=== PATIENT | female | born 1985 | race Caucasian/White ===

== ENCOUNTER → 2017-05-23 | Outpatient (CLI) | payer OTHER | LOC: FIMAGING 13:45 | PROVIDERS: ATTEND Advanced Practice Midwife | DX: O35.8XX0 Maternal care for other (suspected) fetal abnormality and damage, not applicable or unspecified (principal); Z3A.20 20 weeks gestation of pregnancy ==

== ENCOUNTER → 2017-08-03 | Outpatient (CLI) | payer OTHER | LOC: FIMAGING 11:23 | PROVIDERS: ATTEND Advanced Practice Midwife | DX: Z34.83 Encounter for supervision of other normal pregnancy, third trimester (principal); Z3A.30 30 weeks gestation of pregnancy ==

== ENCOUNTER 2017-10-05 06:14 | Inpatient (IN) | payer OTHER ==
[2017-10-05] MEDS ORDERED: OXYTOCIN/RINGERS LACTATE 1,000 ML IV PRN (06:23)
[2017-10-05] MEDS ORDERED: EPSOM SALT 454 GM TP PRN (06:23)
[2017-10-05] MEDS ORDERED: IBUPROFEN 600 MG TAB PO PRN (06:23)
[2017-10-05] MEDS ORDERED: LR 1,000 ML IV PRN (06:23)
[2017-10-05] MEDS ORDERED: TERBUTALINE SULFATE 1 MG/ML VIAL IV PRN (06:23)
[2017-10-05] MEDS ORDERED: LIDOCAINE 1% 300 MG/30 ML SDV SC PRN (06:23)
[2017-10-05] MEDS ORDERED: AMMONIA AROMATIC 1 EACH AMP IH PRN (06:23)
[2017-10-05] MEDS ORDERED: OLIVE OIL 118 ML BTL MISC PRN (06:23)
[2017-10-05] MEDS ORDERED: MISOPROSTOL 200 MCG TAB PO PRN (06:23)
[2017-10-05 07:04] LABS: PLATELET COUNT 155 10^3/uL (150-400)
--- NOTE | 2017-10-05 07:15 | PDGENHP ---
History and Physical History and Physical: CARE: [facility] HPI: Patient is a 32 yo with IUP@ 39-6wks that presents to L&D for IOL. She denies any contractions, LOF, VB. Reports +FM. EDC: 10/06/17 which is based on LMP: 12/30/16 which is known and consistent with Ultrasound at 7 weeks. Her is complicated by: anemia, 2VC Review of Systems: Constitutional: Denies any fever, chills, or fatigue HEENT: denies any visual changes, difficulty swallowing, hearing loss Cardiovascular: Denies any chest pain, palpitations, leg swelling Respiratory: denies any cough, wheezing, or shortness of breathe GI: Denies any nausea, vomiting, diarrhea, constipation : denies any dysuria, urgency, frequency, vaginal bleeding Musculoskeletal: denies any muscle or bone pain Skin: denies any rashes Neuro: denies any headache, seizures, lightheadedness, dizziness, or loss of consciousness Psychiatric: denies any depression, anxiety, or SI/HI thoughts HISTORY: Previous OB history: SVDx2, MAB Past medical history: noncontributory Past surgical history: oral surgery, tonsillectomy, appendectomy Medications: PNV, DHA Allergies (list reaction): NKDA LABS: Rh: A+ ABS: Neg Rubella: Immune HbsAg: NR HIV: NR VDRL: NR 1hr: 108 GC: Neg Chlamydia: Neg Pap: Normal GBS: Negative BMI: (prepreg) 25 PHYSICAL EXAM: Constitutional: WN, A&Ox3 HEENT: normocephalic atraumatic, supple Heart: RRR, no murmur Chest: CTA-B Abdomen: Soft, nontender, gravid SVE: 350/-2 Extremities: no edema, negative homans sign Neuro: grossly normal Psych: normal affect assessment: Reassuring FHTs, baseline 125 +accels, no decels, moderate variability Contractions: toco irregular Assessment: 1) 32yo with IUP@39-6wks () 2) IOL 3) GBS Negative 4) Cat 1 FHR tracing Plan: 1) Admit to L&D 2) pitocin/AROM 3) pain management PRN 4) anticipate
[2017-10-05] MEDS ORDERED: LR 500 ML IV PRN (07:20)
[2017-10-05] MEDS ORDERED: OXYTOCIN/RINGERS LACTATE 500 ML IV SCH (07:30)
[2017-10-05] MEDS ORDERED: LIDOCAINE 1% 300 MG/30 ML SDV ONE (07:32)
[2017-10-05] MEDS ORDERED: MISOPROSTOL 200 MCG TAB ONE (07:32)
[2017-10-05] MEDS ORDERED: OLIVE OIL 118 ML BTL ONE (07:32)
[2017-10-05] MEDS ORDERED: AMMONIA AROMATIC 1 EACH AMP IH ONE (07:32)
--- NOTE | 2017-10-05 08:07 | OBPROG ---
Labor Progress Note Assessment/Plan: Assessment: [id number] with IUP@ 39-6wks (L/7) IOL GBS Negative Cat 1 FHR tracing 2VC Plan: start pitocin AROM PRN pain management PRN anticipate Subjective/Intrapartum Course: 10/05/17 08:06 Pt doing well, denies any contractions, LOF, VB. Reports +FM. Denies any pain. Objective: 10/05/17 06:30 Patient ABO/Rh A POSITIVE 10/05/17 06:30 - SVE Dilation (cm): 3 Effacement (%): 50 Station: -2 - Contraction Pattern Assessment Current Contraction Pattern: Irregular - FHR Assessment [place] FHR (bpm): 125 FHR Pattern Variability: Moderate FHR Category: 1 - Physical Exam General Appearance: WD/WN, alert, no apparent distress Abdomen: non-tender, soft Extremities: non-tender Skin: normal color, warm/dry Neuro/Psych: alert, normal mood/affect, oriented x 3 Oxytocin Orders Assessment - Pre-Induction/Augmentation Assessment Presentation: Vertex Gestational Age: 39 week(s) and 6 day(s) Estimated Weight: 7849-4265 Membrane Status: Intact Current Contraction Pattern: Irregular - Heart Rate Pattern [place] FHR Baseline (bpm): 125 FHR Category: 1 FHR Pattern Variability: Moderate FHR Accelerations: Present - Rivera's Score Dilation: 3-4cm Effacement: 40-50 Station: -2 Cervix: Medium Cervix Position: Posterior Rivera Score Total: 5 - Induction/Augmentation Consent Risks/Benefits of Procedure Reviewed/Pt Agrees to Proceed: Yes ICD10 Worksheet Patient Problems: Problems Problem Status Onset Encounter for induction of labor Acute Two vessel umbilical cord Acute (spontaneous vaginal delivery) Acute - ICD10 Problem Qualifiers (1) Two vessel umbilical cord (2) Encounter for induction of labor
--- NOTE | 2017-10-05 12:29 | OBPROG ---
Labor Progress Note Assessment/Plan: Assessment: [id number] with IUP@ 39-6wks (L/7) IOL GBS Negative Cat 1 FHR tracing 2VC Plan: start pitocin AROM PRN pain management PRN anticipate Subjective/Intrapartum Course: 10/05/17 08:06 Pt doing well, denies any contractions, LOF, VB. Reports +FM. Denies any pain. Objective: 10/05/17 06:30 Patient ABO/Rh A POSITIVE 10/05/17 06:30 - Contraction Pattern Assessment Current Contraction Pattern: Irregular - Physical Exam Estimated Weight: 9828-1553 Oxytocin Orders Assessment - Pre-Induction/Augmentation Assessment Presentation: Vertex Gestational Age: 39 week(s) and 6 day(s) Estimated Weight: 6735-8930 ICD10 Worksheet Patient Problems: Problems Problem Status Onset Encounter for induction of labor Acute Two vessel umbilical cord Acute (spontaneous vaginal delivery) Acute - ICD10 Problem Qualifiers (1) Two vessel umbilical cord (2) Encounter for induction of labor
[2017-10-05] MEDS ORDERED: PHENYLEPHRINE HCL 100 MCG/ML SYR ONE (13:17)
[2017-10-05] MEDS ORDERED: fentaNYL 2MCG/ML/BUP 0.1% RTU 100 ML BAG EP ONE (13:17)
[2017-10-05] MEDS ORDERED: BUPIVACAINE 0.25% 30 ML SDV ONE (13:17)
[2017-10-05] MEDS ORDERED: fentaNYL 100 MCG/2 ML INJ ONE (13:18)
[2017-10-05] MEDS ORDERED: ONDANSETRON 4 MG/2 ML VIAL IVP PRN (14:18)
[2017-10-05] MEDS ORDERED: PHENYLEPHRINE HCL 100 MCG/ML SYR IVP PRN (14:18)
--- NOTE | 2017-10-05 14:21 | POSTANESTH ---
Post Anesthetic Evaluation Cardiovascular Status: Normal, Stable, Similar to Pre-Op Cond Respiratory Status: Normal, Stable, Similar to Pre-op Cond. Level of Consciousness/Mental Status: Can Participate in Eval, Alert and Oriented Pain Control: Adequate, Prn Tx Ordered Nausea/Vomiting Control: Adequate, Prn Tx Ordered Complications Possibly Related to Anesthesia: None Noted
--- NOTE | 2017-10-05 14:24 | PREANESOB ---
Obstetric Pre-Anesthesia Info - General Info Proposed Procedure: Labor and delivery with pitocin. : 4 Para: 2 JULIOCESAR: 10/06/17 Gestational Age: 39 week(s) and 6 day(s) - Info Status: Full Term Monitors: External FHR Baseline (bpm): 130 FHR Pattern: Reassuring - Labor Status Cervical Dilation per last OB SVE: 3 Station per last OB SVE: -2 Pitocin: In Use Indications for Labor Analgesia: Induction of Labor, Pain Control Labor Epidural: Proposed Anesthesia ROS: Prior labor epidural and general anesthesia. Allergies/Adverse Reactions: Allergy/AdvReac Type Severity Reaction Status Date / Time No Known Allergies Allergy Unverified 05/05/14 09:53 Home Medications: Medication Instructions Recorded [place]-3/Dha/Epa/Fish Oil [Fish Oil 1 cap PO DAILY 08/19/15 Dr 500 mg Softgel] Vit27&Calcium/Iron/FA 2 tab PO BID 08/19/15 [] Visit Medications: Generic Name Dose Route Start Last Admin Trade Name Freq PRN Reason Stop Dose Admin Ammonia (Aromatic Spirit) 1 each 10/05/17 06:23 Ammonia Aromatic IH 10/15/17 06:22 ONCE PRN Fainting Diphenhydramine HCl 25 - 50 mg 10/05/17 14:18 Benadryl Injection IVP 04/03/18 14:17 Q6HRS PRN Itching Lactated Ringer's 1,000 mls @ 0 mls/hr 10/05/17 06:23 10/05/17 08:05 Lr IV 10/06/17 06:22 1,000 mls PRN PRN Administration SEE PROTOCOL CONDITIONS Protocol Per Protocol Oxytocin/Lactated Ringer's 1,000 mls @ 0 mls/hr 10/05/17 06:23 Pitocin 20 Units/Lr (Premix) IV PRN PRN Post bleeding Per Protocol Lactated Ringer's 500 mls @ 500 mls/hr 10/05/17 07:20 Lr IV 10/06/17 07:20 PRN PRN Maternal Hypotension Oxytocin/Lactated Ringer's 500 mls @ 0 mls/hr 10/05/17 07:30 10/05/17 08:06 Pitocin 30 Units/Lr (Premix) IV 04/03/18 07:29 500 mls CONT MAMI Administration Protocol Per Protocol Fentanyl/Bupivacaine HCl 100 mls @ 0 mls/hr 10/05/17 14:30 Fentanyl/Bupivacaine/Ns 2 Mcg/Ml 0.1% (Premix EP 10/15/17 14:29 CONT [facility] Protocol As Directed Lactated Ringer's 500 mls @ 0 mls/hr 10/05/17 14:30 Lr IV 04/03/18 14:29 CONT MAMI As Directed Ibuprofen 600 mg 10/05/17 06:23 Motrin PO ONCE PRN post , pain Lidocaine HCl 300 mg 10/05/17 06:23 Lidocaine Hcl 1% SC 04/03/18 06:22 ONCE PRN episiotomy Magnesium Sulfate 454 gm 10/05/17 06:23 Epsom Salt TP 04/03/18 06:22 Q1H PRN perineal discomfort Misoprostol 800 - 1,000 mcg 10/05/17 06:23 Cytotec PO 04/03/18 06:22 ONCE PRN Vaginal Atony/Bleeding [facility] Oil 118 ml 10/05/17 06:23 Sweet Oil MISC 04/03/18 06:22 ONCE PRN perineal massage Ondansetron HCl 4 mg 10/05/17 14:18 Zofran IVP 10/06/17 14:17 Q4HRS PRN Nausea/Vomiting, Can't Take PO Phenylephrine HCl 100 mcg 10/05/17 14:18 Neosynephrine IVP 04/03/18 14:17 .Q2M PRN Hypotension Terbutaline Sulfate 0.25 mg 10/05/17 06:23 Brethine IV 04/03/18 06:22 ONCE PRN Tachysystole Discontinued Medications Generic Name Dose Route Start Last Admin Trade Name Freq PRN Reason Stop Dose Admin Ammonia (Aromatic Spirit) Confirm 10/05/17 07:32 Ammonia Aromatic Administered 10/05/17 07:33 Dose 1 each IH .STK-MED ONE Bupivacaine HCl Confirm 10/05/17 13:17 Sensorcaine 0.25% Sdv Administered 10/05/17 13:18 Dose 30 ml .ROUTE .STK-MED ONE Fentanyl Confirm 10/05/17 13:18 Sublimaze Administered 10/05/17 13:19 Dose 100 mcg .ROUTE .STK-MED ONE Fentanyl/Bupivacaine HCl Confirm 10/05/17 13:17 Fentanyl/Bupivacaine/Ns 2 Mcg/Ml 0.1% (Premix Administered 10/05/17 13:18 Dose 100 ml EP .STK-MED ONE Lidocaine HCl Confirm 10/05/17 07:32 Lidocaine Hcl 1% Administered 10/05/17 07:33 Dose 300 mg .ROUTE .STK-MED ONE Misoprostol Confirm 10/05/17 07:32 Cytotec Administered 10/05/17 07:33 Dose 1,000 mcg .ROUTE .STK-MED ONE [facility] Oil Confirm 10/05/17 07:32 Sweet Oil Administered 10/05/17 07:33 Dose 118 ml .ROUTE .STK-MED ONE Phenylephrine HCl Confirm 10/05/17 13:17 Neosynephrine Administered 10/05/17 13:18 Dose 1,000 mcg .ROUTE .STK-MED ONE - Anesthesia History Response to Local Anesthetics: Normal Anesthesia & Operative History: No Prior Problems Family Anesthesia History: Negative - Social History Substance Use/Abuse: Denies - Vital Signs Blood Pressure: 124/64 Heart Rate: 81 Height/Weight (Nursing): Height 172.72 cm Weight 91.172 kg - Focused Exam Neck exam: FROM Mallampati Score: Class 1 Mouth exam: normal dental/mouth exam Pulmonary: no respiratory distress Cardiovascular: regular rate and rhythym Labs: 10/05/17 06:30 Patient ABO/Rh A POSITIVE 10/05/17 06:30 - Plan Anesthetic Plan: CSE Consent Signed and on Chart: Yes Patient/Guardian Understands and Agrees to Plan: Yes Urgent/Emergent Case: Dexter faria completed preop but documented later for safe timely pt care
[2017-10-05] MEDS ORDERED: LR 500 ML IV SCH (14:30)
[2017-10-05] MEDS ORDERED: fentaNYL 2MCG/ML/BUP 0.1% RTU 100 ML EP SCH (14:30)
--- NOTE | 2017-10-05 15:53 | OBDEL ---
Info Type: Vaginal Presentation at Delivery: Vertex L&D Analgesia/Anesthesia Type: Epidural GBS+: No Intrapartum Medications: Generic Name Dose Route Start Last Admin Trade Name Freq PRN Reason Stop Dose Admin Lactated Ringer's 1,000 mls @ 0 mls/hr 10/05/17 06:23 10/05/17 08:05 Lr IV 10/06/17 06:22 1,000 mls PRN PRN Administration SEE PROTOCOL CONDITIONS Protocol Per Protocol Oxytocin/Lactated Ringer's 500 mls @ 0 mls/hr 10/05/17 07:30 10/05/17 08:06 Pitocin 30 Units/Lr (Premix) IV 04/03/18 07:29 500 mls CONT MAMI Administration Protocol Per Protocol - Hospital Course Intrapartum: 10/05/17 08:06 Pt doing well, denies any contractions, LOF, VB. Reports +FM. Denies any pain. Indications for Delivery: Elective Vaginal Delivery - Delivery Provider Delivery Physician/CNM: Katherine De Proctoring Provider: Fracisco Quintanilla - Labor and Delivery Onset of Contractions Date: 10/05/17 Onset of Contractions Time: 12:19 Onset of Contractions Type: Induced Rupture of Membranes Date: 10/05/17 Rupture of Membranes Time: 12:19 Rupture of Membranes Type: Artificial Amniotic Fluid Color: Clear Dilation Complete Date: 10/05/17 Dilation Complete Time: 14:40 Placenta Delivery Date: 10/05/17 Placenta Delivery Time: 15:10 Total Hours of Labor: 2 Non-surgical Procedures: Amniotomy Vaginal Sponge Count Correct: Yes Vaginal Needle Count Correct: Yes Vaginal Sweep Performed: Yes EBL: 300 Delivery Events: None Delivery Comment: Delivered OA to [facility]. Dad helped catch. No complications - Medications Labor Augmentation/Induction Methods Used: Pitocin Labor Augmentation/Induction Indication: Elective [place] Data JULIOCESAR: 10/06/17 Gestational Age: 39 week(s) and 6 day(s) [place] Delivery Date: 10/05/17 Delivery Time: 15:00 Sex of : Female Score (1 Min): 8 Score (5 Min): 9 ICD10 Worksheet Patient Problems: Problems Problem Status Onset Encounter for induction of labor Acute Two vessel umbilical cord Acute (spontaneous vaginal delivery) Acute
[2017-10-05] MEDS ORDERED: DOCUSATE SODIUM 100 MG CAP PO PRN (16:00)
[2017-10-05] MEDS ORDERED: SIMETHICONE 80 MG TAB CHEW PO PRN (16:00)
[2017-10-05] MEDS ORDERED: HYDROCORTISONE 0.5% CREAM TP PRN (16:00)
[2017-10-05] MEDS: ACETAMINOPHEN 325 MG TAB PO SCH (18:40)
[2017-10-05] MEDS: IBUPROFEN 600 MG TAB PO SCH (19:21)
[2017-10-05 21:43] VITALS: BP 111/63
[2017-10-06] MEDS: IBUPROFEN 600 MG TAB PO SCH ×3 (00:19→12:19)
[2017-10-06] MEDS: ACETAMINOPHEN 325 MG TAB PO SCH ×3 (00:59→13:36)
--- NOTE | 2017-10-06 13:22 | OBGCSDC ---
General Delivery Information - General Info : 4 Para: 3 Abortions: 1 Type: Vaginal L&D Analgesia/Anesthesia Type: Epidural Admission Date: 10/05/17 Labs: Patient ABO/Rh A POSITIVE 10/05/17 06:30 Hct 35.8 % (38.0-47.0) L 10/05/17 06:30 - Hospital Course Antepartum: 10/06/17 13:21 uneventful Intrapartum: 10/05/17 08:06 Pt doing well, denies any contractions, LOF, VB. Reports +FM. Denies any pain. : 10/06/17 13:21 Doing well. Denies pain. Taking ibuprofen q 6 hours. Bleeding minimal. Vaginal - Delivery Provider Delivery Physician/CNM: Katherine De - Diagnosis Labor: Induced Rupture of Membranes Type: Artificial Amniotic Fluid Color: Clear Delivery Events: None - Procedures Non-surgical Procedures: Amniotomy - Delivery Non-surgical Procedures: Amniotomy EBL: 300 Data JULIOCESAR: 10/06/17 Gestational Age: 40 week(s) and 0 day(s) [place] Delivery Date: 10/05/17 Delivery Time: 15:00 Sex of : Female [place] Weight (gm): 4098 g Score (1 Min): 8 Score (5 Min): 9 Discharge Information - Discharge Information Condition: Good Instruction/Follow Up: Two Weeks, Four Weeks, Six Weeks
--- NOTE | 2017-10-06 13:26 | OBPP ---
Progress Note Assessment/Plan: Assessment: 32 PPD #1, doing well Plan: Discharge home today. Reviewed pp instructions. Follow up in the office at 2/4/6 weeks. 10/06/17 13:24 Subjective/ Course: 10/06/17 13:21 Doing well. Denies pain. Taking ibuprofen q 6 hours. Bleeding minimal. Desires discharge home today 10/06/17 13:23 Objective: 10/05/17 06:30 Patient ABO/Rh A POSITIVE 10/05/17 06:30 Temp Pulse Resp BP Pulse Ox 37.1 C 77 16 111/63 95 10/05/17 21:42 10/05/17 21:42 10/05/17 21:42 10/05/17 21:42 10/05/17 21:42 Breasts soft, nipples intact U/2 bleeding minimal neg jody's sign Uterine Position/Fundal Height: Umbilicus -2 Uterine Tone: Firm
== END 2017-10-06 17:01 | disposition home or self-care (01) | DRG 775 ==
LOC: FLD 06:14 → FOB 18:30
PROVIDERS: ADMIT Advanced Practice Midwife; ATTEND Obstetrics & Gynecology
DX: O99.02 Anemia complicating childbirth (principal); O69.89X0 Labor and delivery complicated by other cord complications, not applicable or unspecified; D64.9 Anemia, unspecified; Z3A.39 39 weeks gestation of pregnancy; Z37.0 Single live birth
CPT/HCPCS: J2370; J2590; J3010